=== PATIENT | female | born 1980 | race American Indian/Alaskan Native ===

== ENCOUNTER 2019-02-06 19:48 | Emergency (ER) | payer OTHER ==
[2019-02-06 19:58] VITALS: BP 147/83
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
== END 2019-02-07 01:20 | disposition home or self-care (01) ==
LOC: ED 19:48
DX: R07.9 Chest pain, unspecified (principal); M54.9 Dorsalgia, unspecified; M79.18 Myalgia, other site; V49.49XA Driver injured in collision with other motor vehicles in traffic accident, initial encounter; Y93.89 Activity, other specified; Y92.89 Other specified places as the place of occurrence of the external cause; Y99.8 Other external cause status
CPT/HCPCS: 71046; 72070; 93005; 93010